=== PATIENT | male | born 1975 | race Hispanic/Latino ===

== ENCOUNTER 2017-01-13 12:16 | Emergency (ER) | payer SELFPAY ==
[2017-01-13] MEDS ORDERED: predniSONE 20 MG TAB ONE (13:53)
== END 2017-01-13 14:10 | disposition home or self-care (01) ==
LOC: ERS 12:16
DX: L50.9 Urticaria, unspecified (principal); F17.210 Nicotine dependence, cigarettes, uncomplicated
CPT/HCPCS: 99282; J7506

== ENCOUNTER 2020-11-03 02:13 | Emergency (ER) | payer SELFPAY ==
[2020-11-03] MEDS ORDERED: Boostrix 0.5 ML (Tdap) VIAL ONE (03:06)
[2020-11-03 03:19] LABS: #Eosinphils 0.1 thou/uL (0.0-0.7); #Lymphocytes 1.4 thou/uL (1.20-3.40); #Monocytes 0.8 thou/uL (0.11-0.59); #Neutrophils 11.2 thou/uL (1.40-6.50); %Basophils 0.3 % (0.0-1.0); %Eosinophils 0.6 % (0.0-10.0); %Lymphocytes 10.5 % (21.0-51.0); %Monocytes 6.1 % (0.0-10.0); %Neutrophils 82.5 % (42.0-75.0); Hemoglobin 13.7 g/dL (14.0-18.0); Mean Corpuscular HGB CONC 34.6 g/dL (32.0-36.0); Mean Corpuscular Hemoglobin 30.2 pg (27.0-31.0); Mean Corpuscular Volume 87.4 fL (78.0-98.0); Mean Platelet Volume 8.5 fL (7.4-10.4); Platelet Count 181 thou/uL (130-400); RBC Distribution Width 11.7 % (11.5-14.5); Red Blood Cell (RBC) Count 4.54 mill/uL (4.70-6.10); White Blood Cell (WBC) Count 13.6 thou/uL (4.8-10.8)
[2020-11-03 03:40] LABS: ALT (SGPT) 61 U/L (8-55); AST (SGOT) 53 U/L (5-34); Albumin 3.9 g/dL (3.5-5.0); Alkaline Phosphatase 65 U/L (40-110); Anion Gap 11 mmol/L (10-20); BUN (Urea Nitrogen) 20 mg/dL (8.9-20.6); Bilirubin, Total 0.8 mg/dL (0.2-1.2); Calc. Creatinine Clearance 0 mL/min (70-130); Calcium 9.2 mg/dL (7.8-10.44); Carbon Dioxide 25 mmol/L (22-29); Chloride 105 mmol/L (98-107); Globulin 2.7 g/dL (2.4-3.5); Glucose 125 mg/dL (70-105); Potassium 4.2 mmol/L (3.5-5.1); Protein, Total 6.6 g/dL (6.0-8.3); Sodium 137 mmol/L (136-145)
[2020-11-03] MEDS ORDERED: Bacitracin 1 PK ONE (05:27)
[2020-11-03] MEDS ORDERED: Iopamidol-370 76% 500 ML 1 ML ONE (08:52)
== END 2020-11-03 06:30 | disposition home or self-care (01) ==
LOC: ERS 02:13
DX: S01.81XA Laceration without foreign body of other part of head, initial encounter (principal); W22.8XXA Striking against or struck by other objects, initial encounter; F17.210 Nicotine dependence, cigarettes, uncomplicated
CPT/HCPCS: 70450; 70486; 71260; 72125; 74177; 80053; 85025; 90471; 90715; 96365; J0690; Q9967

== ENCOUNTER 2021-01-02 00:32 | Emergency (ER) | payer SELFPAY | END 2021-01-02 01:03 | disposition home or self-care (01) | LOC: ERS 00:32 | DX: Z02.89 Encounter for other administrative examinations (principal); F17.210 Nicotine dependence, cigarettes, uncomplicated | CPT/HCPCS: 99283 ==